=== PATIENT | female | born 1965 | race Caucasian/White ===

== ENCOUNTER 2017-06-13 08:16 | Day surgery (SDC) | payer BC, OTHER ==
[~2017-06-13 08:16] MED LIST: Lactated Ringers 1,000 ML IV SCH
[2017-06-13] MEDS ORDERED: Midazolam 1 MG/ML 2 ML SDV IV ONE (10:00)
[2017-06-13] MEDS ORDERED: Propofol 200 MG/20 ML SDV IV ONE (10:00)
--- NOTE | 2017-06-13 10:19 | PCM.OPNOTE ---
- General Post-Op/Procedure Note Date of Surgery/Procedure: 06/13/17 Operative Procedure(s): egd with bx Findings: gastritis irregular z line Pre Op Diagnosis: abd pain. palpatations Post-Op Diagnosis: gastritis. irregular z line Anesthesia Technique: MAC Primary Surgeon: Aly Coleman Anesthesia Provider: Jim Vogt Pathology: stomach and esophagus Complications: None Condition: Good Free Text/Narrative:: see dictation
--- NOTE | 2017-06-13 12:12 | OR ---
DATE OF OPERATION: 06/13/2017 SURGEON: Ayl Coleman MD PROCEDURE PERFORMED: Upper endoscopy with cold forceps biopsy. PREOPERATIVE DIAGNOSES: Significant for epigastric abdominal pain and some dyspnea. POSTOPERATIVE DIAGNOSIS: Gastritis, irregular Z-line. INDICATIONS FOR PROCEDURE: This is a 52-year-old white female, who is referred with a history of some epigastric discomfort, it appeared to be cardiac in nature and I ordered a Holter monitor, which was negative for any significant palpitations. She was offered and accepted an EGD as part of her workup. DESCRIPTION OF PROCEDURE: After an excellent IV sedation was administered, the bite-block was inserted. Flexible endoscope was passed without difficulty down the patient's esophagus into the stomach. Stomach was insufflated. Scope was passed through the pylorus to the second portion of the duodenum and slowly withdrawn. The following findings were noted. Duodenum was unremarkable. Stomach demonstrated gastritis. Biopsies were taken. GE junction measured approximately at 35 cm. There was an irregular Z-line, but no marked erythema. Biopsies were taken just distal to the Z-line as well as a small section of the irregularity. Remainder of our esophageal exam was unremarkable. The stomach was deflated. The scope was removed. The patient tolerated the procedure well, and was taken to recovery room in good condition. /[id number] /MODL
== END 2017-06-13 11:30 | disposition home or self-care (01) ==
LOC: FB.SDS 08:16
PROVIDERS: ATTEND Surgery
DX: K29.50 Unspecified chronic gastritis without bleeding (principal); K21.0 Gastro-esophageal reflux disease with esophagitis; Z88.8 Allergy status to other drugs, medicaments and biological substances; Z79.899 Other long term (current) drug therapy; Z87.891 Personal history of nicotine dependence
CPT/HCPCS: 43239; 88305; 88313; 88342; J2250; J2704; J7120